=== PATIENT | male | born 1990 | race African-American/Black ===

== ENCOUNTER 2016-11-25 12:59 | Outpatient (CLI) | payer OTHER ==
[2016-11-25] MEDS ORDERED: IOTHALAMATE MEGLUMINE 50 ML VIAL IU ONE (13:49)
[2016-11-25] MEDS ORDERED: BUFFERED LIDOCAINE 10 ML SYRINGE IU ONE (13:53)
[2016-11-25] MEDS ORDERED: GADOPENTETATE DIMEGLUMINE 5 ML VIAL IVP ONE ×2 (13:53)
== END 2016-11-25 13:00 | disposition home or self-care (01) ==
DX: S43.431A Superior glenoid labrum lesion of right shoulder, initial encounter (principal)
CPT/HCPCS: 23350; 73222; 77002; Q9961

== ENCOUNTER 2016-12-06 09:38 | Emergency (ER) | payer OTHER ==
[2016-12-06] MEDS ORDERED: SODIUM CHLORIDE 0.9% 1,000 ML IV ONE (09:56)
[2016-12-06] MEDS ORDERED: MAG HYDROX/AL HYDROX/SIMETH 30 ML UDC PO STA (09:56)
[2016-12-06] MEDS ORDERED: FAMOTIDINE 20 MG/50 ML 50 ML IV ONE ×2 (09:56→10:30)
[2016-12-06] MEDS ORDERED: ACETAMINOPHEN 1,000 MG/100 ML 100 ML IV STA (09:57)
[2016-12-06] MEDS ORDERED: ONDANSETRON 4 MG/2 ML VIAL IVP STA (09:57)
[2016-12-06] MEDS ORDERED: ONDANSETRON 4 MG/2 ML VIAL ONE (10:29)
[2016-12-06] MEDS ORDERED: MAG HYDROX/AL HYDROX/SIMETH 30 ML UDC ONE (10:29)
[2016-12-06] MEDS ORDERED: ACETAMINOPHEN 1,000 MG/100 ML 100 ML IV ONE (10:29)
== END 2016-12-06 12:43 | disposition home or self-care (01) ==
DX: R10.13 Epigastric pain (principal); R11.2 Nausea with vomiting, unspecified; R19.7 Diarrhea, unspecified; F17.200 Nicotine dependence, unspecified, uncomplicated
CPT/HCPCS: 36415; 76700; 80053; 83690; 85025; 96374; 96375; 99283; 99284; A9270; J0131

== ENCOUNTER 2017-01-02 08:27 | Day surgery (SDC) | payer OTHER ==
[~2017-01-02 08:27] MED LIST: ACETAMINOPHEN 1,000 MG/100 ML 100 ML IV ONE; CELECOXIB 100 MG CAPSULE PO ONE; ceFAZolin 2 GM/50 ML 50 ML IV ONE
[2017-01-02] MEDS ORDERED: LACTATED RINGERS 1,000 ML IV ONE ×2 (08:37→14:44)
[2017-01-02] MEDS ORDERED: SCOPOLAMINE PATCH TOP ONE (09:13)
[2017-01-02] MEDS ORDERED: DEXAMETHASONE 4 MG/ML VIAL IVP ONE (14:46)
[2017-01-02] MEDS ORDERED: PHENYLEPHRINE 10 MG/ML VIAL IV ONE (14:46)
[2017-01-02] MEDS ORDERED: ONDANSETRON 4 MG/2 ML VIAL IVP ONE (14:46)
[2017-01-02] MEDS ORDERED: MIDAZOLAM 2 MG/2 ML VIAL IVP ONE (14:46)
[2017-01-02] MEDS ORDERED: PROPOFOL 200 MG/20 ML VIAL IVP ONE (14:46)
[2017-01-02] MEDS ORDERED: LIDOCAINE-MPF 2% 5 ML VIAL IM ONE (14:46)
[2017-01-02] MEDS ORDERED: GLYCOPYRROLATE 1 MG/5 ML VIAL IVP ONE (14:46)
[2017-01-02] MEDS ORDERED: ROCURONIUM 50 MG/5 ML VIAL IVP ONE (14:46)
[2017-01-02] MEDS ORDERED: NEOSTIGMINE 1 MG/1 ML 10 ML MDV IVP ONE (14:46)
[2017-01-02] MEDS ORDERED: fentaNYL 100 MCG/2 ML VIAL IVP ONE (14:46)
[2017-01-02] MEDS ORDERED: BUPIVACAINE 0.5% PF 30 ML VIAL INFIL ONE ×2 (16:16→16:31)
== END 2017-01-02 08:28 | disposition home or self-care (01) ==
PROC: 0MM14ZZ Reattachment of Right Shoulder Bursa and Ligament, Percutaneous Endoscopic Approach (ICD-10-PCS; principal; 2017-01-02 10:10)
PROC: 0LS30ZZ Reposition Right Upper Arm Tendon, Open Approach (ICD-10-PCS; 2017-01-02 10:10)
DX: M25.311 Other instability, right shoulder (principal); M65.811 Other synovitis and tenosynovitis, right shoulder; S43.431A Superior glenoid labrum lesion of right shoulder, initial encounter; X58.XXXA Exposure to other specified factors, initial encounter; Z53.33 Arthroscopic surgical procedure converted to open procedure; F17.200 Nicotine dependence, unspecified, uncomplicated; G47.30 Sleep apnea, unspecified
CPT/HCPCS: 23430; 29807; 73030; A9270; C1713; J0131; J0690; J3490; J7120